=== PATIENT | male | born 1960 | race African-American/Black ===

== ENCOUNTER 2016-09-29 00:51 | Emergency (ER) | payer OTHER ==
[2016-09-29 00:56] VITALS: BP 138/84; PULSE 68; RESP 18; TEMP 99.3
[2016-09-29] MEDS ORDERED: IBUPROFEN 600 MG TAB PO STA (01:21)
[2016-09-29 01:35] LABS: Amorphous Sediment,Urine Rare /hpf; Appearance,Urine Cloudy (Clear); Bacteria,Urine Rare /hpf; Bilirubin,Urine Negative (Negative); Glucose,Urine (UA) Negative (Negative); Ketones,Urine Negative (Negative); Leukocyte Esterase,Urine Large (Negative); Mucus,Urine Rare /hpf; Nitrite,Urine Negative (Negative); Particle Count 9157; Protein,Urine Trace (Negative); RBC,Urine 8 /hpf (0-5); Specific Gravity,Urine 1.003 (1.001-1.035); Squamous Epithelial Cell,Urine 1 /hpf (0-4); UA Billing (MACRO vs. MICRO) MICRO; Urobilinogen,Urine <2.0 mg/dL (<2.0); WBC,Urine >182 /hpf (0-5)
--- NOTE | 2016-09-29 01:43 | ED ---
Male Urogenital HPI - General Chief complaint: Urogenital Stated complaint: Male GI Time Seen by Provider: 09/29/16 01:02 Source: patient, RN notes reviewed, old records reviewed Mode of arrival: ambulatory Limitations: no limitations - History of Present Illness Initial comments: Is a 46-year-old male presenting to the emergency department with chief complaint of scrotal swelling. Patient reports that it started 2 days ago and mainly on the right side. Patient reports that the swelling is now spread towards the left side of the scrotum. Patient states it is very painful. Denies any difficulty with urinating. Patient states that he's had no fever or chills. Denies any abdominal pain, nausea or vomiting. She denies any rashes over the area. Denies any significant past medical history including diabetes. Patient reports that 2 weeks ago he did have an episode of vomiting and diarrhea which she related to a viral illness. Patient reports the pain is worse with movement or sitting in the wrong position. He reports that the scrotum will swell and be irritated by his legs. He denies any trauma to the area to cause the swelling and pain. - Related Data Home Medications Medication Instructions Recorded Confirmed SUMAtriptan SUCCINATE [Imitrex] 25 mg PO DAILY PRN 08/31/15 09/29/16 Previous Rx's Medication Instructions Recorded Acetaminophen-Codeine 300-30mg 1 tab PO Q4H PRN #15 tablet 09/29/16 [Tylenol #3] Doxycycline [Vibramycin] 100 mg PO Q12HR 10 Days 09/29/16 Levofloxacin [Levaquin] 500 mg PO DAILY #10 tab 09/29/16 Allergies Allergy/AdvReac Type Severity Reaction Status Date / Time No Known Allergies Allergy Verified 09/29/16 00:56 Review of Systems ROS Statement: Those systems with pertinent positive or pertinent negative responses have been documented in the HPI. ROS Other: All systems not noted in ROS Statement are negative. Past Medical History Additional Past Medical History / Comment(s): headaches History of Any Multi-Drug Resistant Organisms: None Reported Additional Past Surgical History / Comment(s): Hernia Past Psychological History: No Psychological Hx Reported Smoking Status: Current every day smoker Past Alcohol Use History: Occasional Past Drug Use History: None Reported General Exam - General Exam Comments Initial Comments: Well-appearing 56-year-old male. No acute distress. Limitations: no limitations General appearance: alert, in no apparent distress Head exam: Present: atraumatic, normocephalic, normal inspection Eye exam: Present: normal appearance, PERRL, EOMI. Absent: scleral icterus, conjunctival injection, periorbital swelling ENT exam: Present: normal exam, mucous membranes moist Neck exam: Present: normal inspection. Absent: tenderness, meningismus, lymphadenopathy Respiratory exam: Present: normal lung sounds bilaterally. Absent: respiratory distress, wheezes, rales, rhonchi, stridor Cardiovascular Exam: Present: regular rate, normal rhythm, normal heart sounds. Absent: systolic murmur, diastolic murmur, rubs, gallop, clicks GI/Abdominal exam: Present: soft, normal bowel sounds. Absent: distended, tenderness, guarding, rebound, rigid exam: Present: testicular tenderness, scrotal swelling (Right-sided scrotal swelling. Evidence of what appears to be a fluid-filled mass over the right testicle. Mild left sided scrotal swelling.), vertical testicular lie. Absent : normal inspection, urethral discharge, circumcision Extremities exam: Present: normal inspection, full ROM, normal capillary refill. Absent: tenderness, pedal edema, joint swelling, calf tenderness Back exam: Present: normal inspection Neurological exam: Present: alert, oriented X3, CN II-XII intact Psychiatric exam: Present: normal affect, normal mood Skin exam: Present: warm, dry, intact, normal color. Absent: rash Course Vital Signs 09/29/16 00:54 Temperature 99.3 F Pulse Rate 68 Respiratory 18 Rate Blood Pressure 138/84 O2 Sat by Pulse 100 Oximetry Medical Decision Making - Medical Decision Making This is a 56-year-old male chief complaint of right-sided scrotal swelling for the past 2 days. Patient reports the pain is worse with movement or certain positions. Patient denies any difficulty urinating. Urinalysis was performed. Did show signs of infection. Patient does receive an ultrasound of the scrotum. Ultrasound does show evidence of right-sided epididymitis and orchitis. Also mild left epididymitis. Patient will be treated with IM Rocephin, doxycycline and Levaquin. Patient reports that he's not a serious concern for sexual transmitted infection, but is not 100% sure. Patient urinalysis will be sent for culture. Patient agrees to treatment plan will comply. Return parameters were discussed. Discussed close follow-up with primary care provider and return to emergency department if it continues to get worse over the next 2 or 3 days. Discussed scrotal elevation and ice. Discussed this case with Dr. Jauregui. - Lab Data Lab Results 09/29/16 Range/Units 01:17 Urine Color Colorless Urine Appearance Cloudy (Clear) Urine pH 6.0 (5.0-8.0) Ur Specific Ennice 1.003 (1.001-1.035) Urine Protein Trace H (Negative) Urine Glucose (UA) Negative (Negative) Urine Ketones Negative (Negative) Urine Blood Moderate H (Negative) Urine Nitrite Negative (Negative) Urine Bilirubin Negative (Negative) Urine Urobilinogen <2.0 (<2.0) mg/dL Ur Leukocyte Esterase Large H (Negative) Urine RBC 8 H (0-5) /hpf Urine WBC >182 H (0-5) /hpf Ur Squamous Epith Cells 1 (0-4) /hpf Amorphous Sediment Rare H (None) /hpf Urine Bacteria Rare H (None) /hpf Urine Mucus Rare H (None) /hpf - Radiology Data Radiology results: report reviewed Right epididymal orchitis and moderate hydrocele. Left epididymitis. No evidence of torsion. Right epididymis measures 1.6 cm. With hypervascular flow. Left epididymis is 0.87 m. With hypervascular flow. Right testes is 3.7 x 2.8 x 3.2 cm hypervascular flow. Left testes is 3.2 x 1.6 x 2.5 cm with normal vascularity. Disposition Clinical Impression: Epididymitis Disposition: HOME SELF-CARE Condition: Good Instructions: Epididymo-Orchitis (ED), Testicle Pain (ED) Additional Instructions: Patient advised to completely antibiotic prescriptions. Follow-up with primary care provider within the next 24-48 hours. Patient advised to apply ice as scrotum and keep it elevated. Return to the emergency department if any alarming signs or symptoms occur. Prescriptions: Acetaminophen-Codeine 300-30mg [Tylenol #3] 1 tab PO Q4H PRN #15 tablet PRN Reason: Pain Doxycycline [Vibramycin] 100 mg PO Q12HR 10 Days Levofloxacin [Levaquin] 500 mg PO DAILY #10 tab Referrals: Dami Young DO [Primary Care Provider] - 1-2 days Time of Disposition: 02:33
--- NOTE | 2016-09-29 02:14 | US ---
INDICATION: Testicular pain on the right side with swelling TECHNIQUE: Real-time sonographic imaging of the scrotum is performed in transverse and longitudinal projections. COMPARISON: None. FINDINGS: There is scrotal skin thickening. TESTES: Right testis: 3.7 x 2.8 x 3.2 cm with hypervascular flow. Left testis: 3.2 x 1.6 x 2.5 cm with normal vascularity. EPIDIDYMIS HEAD: Right Epididymis: 1.6 cm, with hypervascular flow. Left Epididymis: 0.8 cm, with hypervascular flow. HYDROCELE: Moderate right hydrocele. Trace left hydrocele. VARICOCELE: Present on the left. IMPRESSION: 1. Right epididymoorchitis and moderate hydrocele. 2. Left epididymitis. 3. No evidence of torsion.
[2016-09-29] MEDS ORDERED: cefTRIAXone 1,000 MG VIAL (IM USE) IM STA (02:29)
[2016-09-29] MEDS ORDERED: LEVOFLOXACIN 500 MG TAB PO STA (02:31)
[2016-09-29] MEDS ORDERED: DOXYCYCLINE 50 MG CAP PO STA (02:31)
== END 2016-09-29 02:55 | disposition home or self-care (01) ==
LOC: EC 00:51
DX: N45.1 Epididymitis (principal); R19.7 Diarrhea, unspecified; F17.200 Nicotine dependence, unspecified, uncomplicated
CPT/HCPCS: 99284; 96372; 81001; 93975; 76870; J0696

== ENCOUNTER 2016-11-09 22:45 | Emergency (ER) | payer OTHER ==
[2016-11-10 00:03] VITALS: RESP 16
[2016-11-10] MEDS ORDERED: HYDROmorphone 2 MG/ML 1 ML SYRINGE IM STA (00:12)
--- NOTE | 2016-11-10 00:20 | ED ---
General Adult HPI - General Chief complaint: Headache Stated complaint: Cluster Headache Time Seen by Provider: 11/09/16 23:51 Source: patient, RN notes reviewed, old records reviewed Mode of arrival: ambulatory Limitations: no limitations - History of Present Illness Initial comments: This is a 56-year-old Malee F regurgitative headache. Patient states is a chronic headache. 2-3 days of headache with no nausea no vomiting no neurological complaints. Patient's history of cluster headaches, sometimes oxygen Housel is refusing oxygen at this time, patient states usually is helped with the shot, pain control. Otherwise patient denies complaint - Related Data Home Medications Medication Instructions Recorded Confirmed SUMAtriptan SUCCINATE [Imitrex] 25 mg PO DAILY PRN 08/31/15 11/09/16 Allergies Allergy/AdvReac Type Severity Reaction Status Date / Time No Known Allergies Allergy Verified 09/29/16 00:56 Review of Systems ROS Statement: Those systems with pertinent positive or pertinent negative responses have been documented in the HPI. ROS Other: All systems not noted in ROS Statement are negative. Past Medical History Additional Past Medical History / Comment(s): headaches History of Any Multi-Drug Resistant Organisms: None Reported Past Surgical History: Hernia Repair Additional Past Surgical History / Comment(s): Hernia Past Psychological History: No Psychological Hx Reported Smoking Status: Current every day smoker Past Alcohol Use History: Occasional Past Drug Use History: None Reported General Exam Limitations: no limitations General appearance: alert, in no apparent distress Head exam: Present: atraumatic, normocephalic, normal inspection Eye exam: Present: normal appearance, PERRL, EOMI. Absent: scleral icterus, conjunctival injection, periorbital swelling ENT exam: Present: normal exam, mucous membranes moist Neck exam: Present: normal inspection. Absent: tenderness, meningismus, lymphadenopathy Respiratory exam: Present: normal lung sounds bilaterally. Absent: respiratory distress, wheezes, rales, rhonchi, stridor Cardiovascular Exam: Present: regular rate, normal rhythm, normal heart sounds. Absent: systolic murmur, diastolic murmur, rubs, gallop, clicks GI/Abdominal exam: Present: soft, normal bowel sounds. Absent: distended, tenderness, guarding, rebound, rigid Extremities exam: Present: normal inspection, full ROM, normal capillary refill. Absent: tenderness, pedal edema, joint swelling, calf tenderness Back exam: Present: normal inspection Neurological exam: Present: alert, oriented X3, CN II-XII intact Psychiatric exam: Present: normal affect, normal mood Skin exam: Present: warm, dry, intact, normal color. Absent: rash Course Vital Signs 11/09/16 11/09/16 22:58 23:56 Temperature 97.8 F Pulse Rate 82 72 Respiratory 18 16 Rate Blood Pressure 147/83 156/87 O2 Sat by Pulse 98 98 Oximetry - Reevaluation(s) Reevaluation #1: 11/10/16 00:20 Headache resolved Medical Decision Making - Medical Decision Making 56 male the ER for reevaluation tension headache, chronic headache, patient headache resolved, patient can be discharged home Disposition Clinical Impression: Cluster headaches Disposition: HOME SELF-CARE Condition: Good Instructions: Acute Headache (ED) Referrals: Dami Young DO [Primary Care Provider] - 1-2 days
[2016-11-10 00:42] VITALS: BP 146/85; PULSE 71; TEMP 97.3
== END 2016-11-10 00:43 | disposition home or self-care (01) ==
LOC: EC 22:45
DX: G44.009 Cluster headache syndrome, unspecified, not intractable (principal); Z79.899 Other long term (current) drug therapy; F17.200 Nicotine dependence, unspecified, uncomplicated
CPT/HCPCS: 99283; 96372; J1170

== ENCOUNTER 2018-10-07 19:38 | Emergency (ER) | payer OTHER ==
[2018-10-07 19:51] VITALS: BP 142/87; PULSE 75; RESP 18; TEMP 98.4
== END 2018-10-07 20:14 | disposition left against medical advice (07) ==
LOC: EC 19:38
DX: M79.602 Pain in left arm (principal); Z53.21 Procedure and treatment not carried out due to patient leaving prior to being seen by health care provider
CPT/HCPCS: 99499

== ENCOUNTER 2020-02-19 02:56 | Emergency (ER) | payer OTHER ==
[2020-02-19 03:02] VITALS: TEMP 98.4
[2020-02-19] MEDS ORDERED: SODIUM CHLORIDE 0.9% 1,000 ML IV STA (03:03)
[2020-02-19] MEDS ORDERED: LABETALOL 5 MG/ML VIAL MDV IVP STA (03:04)
[2020-02-19] MEDS ORDERED: HYDROmorphone 1 MG/ML 1 ML SYRINGE IVP STA ×2 (03:04→04:17)
--- NOTE | 2020-02-19 03:05 | ED ---
Headache HPI - General Chief Complaint: Headache Stated Complaint: headache Time Seen by Provider: 02/19/20 03:02 Source: RN notes reviewed, old records reviewed Mode of arrival: ambulatory Limitations: no limitations - History of Present Illness Initial Comments: This is a 59-year-old male to the ER for evaluation patient presents today for evaluation regards to headache. Patient having persistent severe headache history of cluster headaches headache, weak today. Otherwise patient has no other new complaints, history of similar type headache but has not had one in almost 2 years MD Complaint: headache, other (Cluster headaches) -: week(s) Onset Description: sudden Location: diffuse Severity: moderate Severity scale (1-10): 6 Quality: throbbing, sharp, full Consistency: intermittent Improves With: nothing Worsens With: none Associated Symptoms: other (No other complaints but difficulty to sleep secondary to pain) Treatments Prior to Arrival: none - Related Data Allergies Allergy/AdvReac Type Severity Reaction Status Date / Time No Known Allergies Allergy Verified 02/19/20 03:02 Review of Systems ROS Statement: Those systems with pertinent positive or pertinent negative responses have been documented in the HPI. ROS Other: All systems not noted in ROS Statement are negative. Past Medical History Additional Past Medical History / Comment(s): headaches History of Any Multi-Drug Resistant Organisms: None Reported Past Surgical History: Hernia Repair Additional Past Surgical History / Comment(s): Hernia Past Psychological History: No Psychological Hx Reported Smoking Status: Current every day smoker Past Alcohol Use History: Abuse, Daily, Heavy Past Drug Use History: None Reported General Exam Limitations: no limitations General appearance: alert, in no apparent distress Head exam: Present: atraumatic, normocephalic, normal inspection Eye exam: Present: normal appearance, PERRL, EOMI. Absent: scleral icterus, conjunctival injection, periorbital swelling ENT exam: Present: normal exam, mucous membranes moist Neck exam: Present: normal inspection. Absent: tenderness, meningismus, lymphadenopathy Respiratory exam: Present: normal lung sounds bilaterally. Absent: respiratory distress, wheezes, rales, rhonchi, stridor Cardiovascular Exam: Present: regular rate, normal rhythm, normal heart sounds. Absent: systolic murmur, diastolic murmur, rubs, gallop, clicks GI/Abdominal exam: Present: soft, normal bowel sounds. Absent: distended, tenderness, guarding, rebound, rigid Extremities exam: Present: normal inspection, full ROM, normal capillary refill. Absent: tenderness, pedal edema, joint swelling, calf tenderness Back exam: Present: normal inspection Neurological exam: Present: alert, oriented X3, CN II-XII intact Psychiatric exam: Present: normal affect, normal mood Skin exam: Present: warm, dry, intact, normal color. Absent: rash Course Vital Signs 02/19/20 02/19/20 02/19/20 03:00 03:26 04:00 Temperature 98.4 F Pulse Rate 60 55 L Respiratory 18 16 Rate Blood Pressure 201/114 171/91 153/89 O2 Sat by Pulse 98 99 Oximetry - Reevaluation(s) Reevaluation #1: 02/19/20 03:52 Medical records reviewed Reevaluation #2: 02/19/20 03:52 Patient feeling significantly better Reevaluation #3: 02/19/20 04:27 Headache to get marginally worse here in the ER but improved with more pain control Reevaluation #4: 02/19/20 04:27 Spoke patient regarding findings here in the ER, questions answered Medical Decision Making - Medical Decision Making 79 male known to our facility for headaches in the past coming in for headache today. Headache for 2 weeks intermittent, getting worse today. Patient's headache is resolved here in the ER blood pressures improved, patient can be discharged - Lab Data Result diagrams: 02/19/20 03:22 02/19/20 03:22 Lab Results 02/19/20 02/19/20 Range/Units 03:22 03:22 WBC 5.4 (3.8-10.6) k/uL RBC 4.00 L (4.30-5.90) m/uL Hgb 14.4 (13.0-17.5) gm/dL Hct 43.1 (39.0-53.0) % MCV 107.9 H (80.0-100.0) fL MCH 35.9 H (25.0-35.0) pg MCHC 33.3 (31.0-37.0) g/dL RDW 12.2 (11.5-15.5) % Plt Count 302 (150-450) k/uL Neutrophils % 60 % Lymphocytes % 23 % Monocytes % 10 % Eosinophils % 3 % Basophils % 1 % Neutrophils # 3.2 (1.3-7.7) k/uL Lymphocytes # 1.3 (1.0-4.8) k/uL Monocytes # 0.5 (0-1.0) k/uL Eosinophils # 0.2 (0-0.7) k/uL Basophils # 0.0 (0-0.2) k/uL Macrocytosis Moderate Sodium 139 (137-145) mmol/L Potassium 4.2 (3.5-5.1) mmol/L Chloride 108 H (98-107) mmol/L Carbon Dioxide 25 (22-30) mmol/L Anion Gap 6 mmol/L BUN 17 (9-20) mg/dL Creatinine 0.87 (0.66-1.25) mg/dL Est GFR (CKD-EPI)AfAm >90 (>60 ml/min/1.73 sqM) Est GFR (CKD-EPI)NonAf >90 (>60 ml/min/1.73 sqM) Glucose 120 H (74-99) mg/dL Calcium 9.3 (8.4-10.2) mg/dL Phosphorus 3.5 (2.5-4.5) mg/dL Magnesium 1.9 (1.6-2.3) mg/dL Total Bilirubin 0.5 (0.2-1.3) mg/dL AST 28 (17-59) U/L ALT 8 (4-49) U/L Alkaline Phosphatase 82 (38-126) U/L Total Protein 6.7 (6.3-8.2) g/dL Albumin 4.0 (3.5-5.0) g/dL - EKG Data -: EKG Interpreted by Me (EKG shows sinus bradycardia 56 NM 134 QRS 112 QTC 434) - Radiology Data Radiology results: report reviewed (CT brain is negative for acute disease), image reviewed Disposition Clinical Impression: Headache, Cluster headaches Disposition: HOME SELF-CARE Condition: Good Instructions (If sedation given, give patient instructions): Acute Headache (ED) Is patient prescribed a controlled substance at d/c from ED?: No Referrals: [facility],Clinic [Primary Care Provider] - 1-2 days
[2020-02-19 03:41] LABS: Basophils % (A) 1 %; Eosinophils # (A) 0.2 k/uL (0-0.7); Eosinophils % (A) 3 %; HCT 43.1 % (39.0-53.0); HGB 14.4 gm/dL (13.0-17.5); Lymphocytes # (A) 1.3 k/uL (1.0-4.8); Lymphocytes % (A) 23 %; MCH 35.9 pg (25.0-35.0); MCHC 33.3 g/dL (31.0-37.0); MCV 107.9 fL (80.0-100.0); Macrocytosis Moderate; Mean Platelet Volume 6.9; Monocytes # (A) 0.5 k/uL (0-1.0); Monocytes % (A) 10 %; Neutrophils # (A) 3.2 k/uL (1.3-7.7); Neutrophils % (A) 60 %; Platelet Count 302 k/uL (150-450); RDW 12.2 % (11.5-15.5); WBC 5.4 k/uL (3.8-10.6)
[2020-02-19 03:58] LABS: ALT 8 U/L (4-49); AST 28 U/L (17-59); African American GFR (CKD) >90 (>60 ml/min/1.73 sqM); Alkaline Phosphatase 82 U/L (38-126); Anion Gap 6 mmol/L; Blood Urea Nitrogen 17 mg/dL (9-20); Calcium 9.3 mg/dL (8.4-10.2); Carbon Dioxide 25 mmol/L (22-30); Chloride 108 mmol/L (98-107); Glucose 120 mg/dL (74-99); Magnesium 1.9 mg/dL (1.6-2.3); Non-African American GFR(CKD) >90 (>60 ml/min/1.73 sqM); Phosphorus 3.5 mg/dL (2.5-4.5); Potassium 4.2 mmol/L (3.5-5.1); Sodium 139 mmol/L (137-145); Total Bilirubin 0.5 mg/dL (0.2-1.3); Total Protein 6.7 g/dL (6.3-8.2)
[2020-02-19] MEDS ORDERED: DIAZEPAM 5 MG/ML 2 ML INJ IVP STA (04:17)
[2020-02-19] MEDS ORDERED: KETOROLAC 15 MG/ML 1 ML VIAL IVP STA (04:17)
[2020-02-19 04:32] VITALS: PULSE 62
--- NOTE | 2020-02-19 04:40 | CT ---
EXAM: CT Head Without Intravenous Contrast CLINICAL HISTORY: headache TECHNIQUE: Axial computed tomography images of the head/brain without intravenous contrast. CTDI is 49.27 mGy and DLP is 1142.4 mGy-cm. This CT exam was performed using one or more of the following dose reduction techniques: automated exposure control, adjustment of the mA and/or kV according to patient size, and/or use of iterative reconstruction technique. COMPARISON: MR brain dated 12/31/2015, CT brain dated 09/11/2015 FINDINGS: Brain: No acute intracranial hemorrhage. Lombardi-white interface is preserved throughout the cerebral hemispheres. Posterior fossa is symmetric. Ventricles: Unremarkable. No ventriculomegaly. Basilar cisterns are widely patent. Bones/joints: Unremarkable. No acute fracture. Soft tissues: Unremarkable. Sinuses: Unremarkable as visualized. No acute sinusitis. Mastoid air cells: Unremarkable as visualized. No mastoid effusion. IMPRESSION: No acute intracranial abnormality. No acute intracranial hemorrhage, herniation, or hydrocephalus.
[2020-02-19] MEDS ORDERED: SUMAtriptan succinate 50 MG TAB PO ONE (04:45)
[2020-02-19 07:03] VITALS: BP 163/74; RESP 16
== END 2020-02-19 06:57 | disposition home or self-care (01) ==
LOC: EC 02:56
DX: G44.009 Cluster headache syndrome, unspecified, not intractable (principal); F17.200 Nicotine dependence, unspecified, uncomplicated
CPT/HCPCS: 99285 ×2; 96374 ×2; 96375 ×4; 96376 ×2; 96361 ×2; 36415; 93005; 80053; 83735; 84100; 85025; 70450; J3360; J1170; J1885

== ENCOUNTER 2020-02-28 09:21 | Emergency (ER) | payer OTHER ==
[2020-02-28 09:31] VITALS: PULSE 54; TEMP 98
[2020-02-28] MEDS ORDERED: HYDROmorphone 1 MG/ML 1 ML SYRINGE IVP STA (09:42)
[2020-02-28] MEDS ORDERED: SODIUM CHLORIDE 0.9% 1,000 ML IV STA (09:42)
[2020-02-28] MEDS ORDERED: METOCLOPRAMIDE 5 MG/ML 2 ML VIAL IVP STA (09:42)
--- NOTE | 2020-02-28 09:42 | ED ---
General Adult HPI - General Chief complaint: Headache Stated complaint: Headache Time Seen by Provider: 02/28/20 09:28 Source: patient, RN notes reviewed Mode of arrival: ambulatory Limitations: no limitations - History of Present Illness Initial comments: Patient is a pleasant 59-year-old male presenting to the emergency Department with complaints of headache. Onset of symptoms this time was 3 days ago. Patient has left-sided headaches that come and go. Patient states this one has been occurring for a few hours. Patient states the past few days he has had 2-3 per day. Patient has previously been diagnosed with cluster headaches. Patient states he has been having similar headaches to this since age 26. Patient has had previous head CTs. Patient states sometimes he gets these frequently and sometimes does not get them for months or occasionally a year or 2. No weakness or confusion. Patient did have previous head CTs and did have recent head CT a week or 2 ago when he was here. Patient states previously oxygen, Dilaudid, and sumatriptan have helped him. - Related Data Home Medications Medication Instructions Recorded Confirmed No Known Home Medications 02/28/20 02/28/20 Allergies Allergy/AdvReac Type Severity Reaction Status Date / Time No Known Allergies Allergy Verified 02/28/20 10:55 Review of Systems ROS Statement: Those systems with pertinent positive or pertinent negative responses have been documented in the HPI. ROS Other: All systems not noted in ROS Statement are negative. Constitutional: Denies: fever Eyes: Denies: vision change ENT: Denies: ear pain Endocrine: Denies: fatigue Gastrointestinal: Reports: nausea, vomiting. Denies: abdominal pain Genitourinary: Denies: dysuria Musculoskeletal: Denies: back pain Skin: Denies: rash Neurological: Reports: headache. Denies: weakness, confusion Past Medical History Additional Past Medical History / Comment(s): headaches History of Any Multi-Drug Resistant Organisms: None Reported Past Surgical History: Hernia Repair Additional Past Surgical History / Comment(s): Hernia Past Psychological History: No Psychological Hx Reported Smoking Status: Current every day smoker Past Alcohol Use History: Abuse, Daily, Heavy Past Drug Use History: None Reported General Exam Limitations: no limitations General appearance: alert, in no apparent distress Head exam: Present: normocephalic Eye exam: Present: normal appearance, PERRL, EOMI. Absent: nystagmus ENT exam: Present: normal oropharynx Neck exam: Present: normal inspection Respiratory exam: Present: normal lung sounds bilaterally Cardiovascular Exam: Present: regular rate, normal rhythm GI/Abdominal exam: Present: soft. Absent: tenderness Extremities exam: Present: normal inspection Neurological exam: Present: alert, oriented X3, CN II-XII intact. Absent: motor sensory deficit Expanded Neurological exam: Present: protecting the airway Speech: Present: fluid speech Cranial nerves: EOM's Intact: Normal, Facial Sensation: Normal Cerebellar function: Finger to Nose: Normal Sensory exam: Upper Extremity Light Touch: Normal, Lower Extremity Light Touch: Normal Motor strength exam: RUE: 5, LUE: 5, RLE: 5, LLE: 5 Eye Response: (4) open spontaneously Motor Response: (6) obeys commands Verbal Response: (5) oriented Psychiatric exam: Present: normal affect, normal mood Skin exam: Present: normal color Course Vital Signs 02/28/20 02/28/20 09:29 10:31 Temperature 98.0 F Pulse Rate 54 L 54 L Respiratory 18 20 Rate Blood Pressure 188/86 160/87 O2 Sat by Pulse 100 100 Oximetry Medical Decision Making - Medical Decision Making Patient reevaluated and resting comfortably in bed. Patient states he is feeling much better and is comfortable with discharge. Patient does request a dose of Imitrex to take home with him if needs it for later. - Lab Data Lab Results 02/28/20 Range/Units 09:53 ESR 6 (0-15) mm/hr Disposition Clinical Impression: Cluster headaches Disposition: HOME SELF-CARE Condition: Stable Instructions (If sedation given, give patient instructions): Acute Headache (ED) Additional Instructions: Please follow-up with primary care physician in the being the week. Return for weakness, confusion, fevers, worsening or change in symptoms or other concerns. Is patient prescribed a controlled substance at d/c from ED?: No Referrals: [facility],Clinic [Primary Care Provider] - 1-2 days Time of Disposition: 10:43
[2020-02-28 10:39] VITALS: RESP 20
[2020-02-28] MEDS ORDERED: SUMAtriptan succinate 50 MG TAB PO STA (10:43)
[2020-02-28 11:31] VITALS: BP 153/91
== END 2020-02-28 11:34 | disposition home or self-care (01) ==
LOC: EC 09:21
DX: G44.009 Cluster headache syndrome, unspecified, not intractable (principal); F17.200 Nicotine dependence, unspecified, uncomplicated
CPT/HCPCS: 36415; 85652; 99284; 96374; 96375; 96361; J2765; J1170

== ENCOUNTER 2021-04-17 23:48 | Observation (INO) | payer OTHER ==
[2021-04-17] MEDS ORDERED: HYDROmorphone 1 MG/ML 1 ML SYRINGE IVP STA (23:54)
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
[2021-04-18 00:24] LABS: Basophils % (A) 1 %; Eosinophils # (A) 0.1 k/uL (0-0.7); Eosinophils % (A) 3 %; HGB 15.5 gm/dL (13.0-17.5); Lymphocytes # (A) 1.4 k/uL (1.0-4.8); Lymphocytes % (A) 33 %; MCV 108.9 fL (80.0-100.0); Macrocytosis Moderate; Mean Platelet Volume 7.3; Monocytes # (A) 0.3 k/uL (0-1.0); Monocytes % (A) 8 %; Neutrophils # (A) 2.2 k/uL (1.3-7.7); Neutrophils % (A) 52 %; Platelet Count 262 k/uL (150-450); RBC 4.32 m/uL (4.30-5.90); RDW 12.1 % (11.5-15.5); WBC 4.2 k/uL (3.8-10.6)
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
[2021-04-18 00:40] LABS: ALT 9 U/L (4-49); AST 45 U/L (17-59); African American GFR (CKD) >90 (>60 ml/min/1.73 sqM); Albumin 3.5 g/dL (3.5-5.0); Alkaline Phosphatase 37 U/L (38-126); Anion Gap 8 mmol/L; Blood Urea Nitrogen 9 mg/dL (9-20); Calcium 8.2 mg/dL (8.4-10.2); Carbon Dioxide 22 mmol/L (22-30); Chloride 106 mmol/L (98-107); Glucose 85 mg/dL (74-99); Non-African American GFR(CKD) >90 (>60 ml/min/1.73 sqM); Sodium 136 mmol/L (137-145); Total Bilirubin 0.7 mg/dL (0.2-1.3); Total Protein 6.3 g/dL (6.3-8.2)
[2021-04-18 00:42] LABS: Partial Thromboplastin Time 23.5 sec (22.0-30.0); Prothrombin Time 10.4 sec (9.0-12.0)
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
[2021-04-18 00:47] LABS: Alcohol 236 mg/dL
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
[2021-04-18] MEDS ORDERED: HYDROmorphone 0.5 MG/0.5 ML SYRINGE IVP PRN (01:05)
[2021-04-18] MEDS ORDERED: ACETAMINOPHEN TAB 325 MG TAB PO PRN (01:05)
[2021-04-18] MEDS ORDERED: IBUPROFEN 400 MG TAB PO PRN (01:05)
[2021-04-18] MEDS ORDERED: NALOXONE 0.4 MG/ML 1 ML VIAL IV PRN (01:05)
[2021-04-18] MEDS: HYDROmorphone 1 MG/ML 1 ML SYRINGE IVP PRN ×5 (01:28→19:46)
[2021-04-18] MEDS: SODIUM CHLORIDE 0.9% 1,000 ML IV SCH ×2 (01:28→14:49)
[2021-04-18] MEDS ORDERED: KETOROLAC 30 MG/ML 1 ML VIAL IVP PRN (09:05)
[2021-04-18] MEDS: PANTOPRAZOLE 40 MG TABLET PO SCH (09:13)
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
--- NOTE | 2021-04-18 11:59 | ECHOF ---
Referral Reason:Sternal fracture MEASUREMENTS -------- HEIGHT: 175.3 cm WEIGHT: 81.6 kg BP: 134/84 RVIDd: 2.2 cm (< 3.3) IVSd: 1.0 cm (0.6 - 1.1) LVIDd: 5.0 cm (3.9 - 5.3) LVPWd: 1.0 cm (0.6 - 1.1) IVSs: 1.3 cm LVIDs: 3.2 cm LVPWs: 1.4 cm LAESV Index (A-L): 18.67 ml/m Ao Diam: 3.2 cm (2.0 - 3.7) AV Cusp: 2.0 cm (1.5 - 2.6) LA Diam: 3.8 cm (2.7 - 3.8) MV EXCURSION: 22.907 mm (> 18.000) MV EF SLOPE: 166 mm/s (70 - 150) EPSS: 1.2 cm MV E Abdulaziz: 0.57 m/s MV DecT: 231 ms MV A Abdulaziz: 0.54 m/s MV E/A Ratio: 1.06 RAP: 5.00 mmHg RVSP: 11.42 mmHg FINDINGS -------- This was a technically good study. The left ventricular size is normal. Left ventricular wall thickness is normal. Overall left vent ricular systolic function is normal with, an EF between 55 - 60 %. The diastolic filling pattern is normal for the age of the patient 7.98. The right ventricle is normal in size. The left atrial size is normal. Normal LA size by volume 22+/-6 ml/m2. The right atrial size is normal. Aortic valve is trileaflet and is mildly thickened. The mitral valve is normal. The mitral valve leaflets are mildly thickened. There is trace mitral regurgitation. The tricuspid valve appears structurally normal. Trace tricuspid regurgitation present. Right winter tricular systolic pressure is normal at < 35 mmHg. There is no pulmonic regurgitation present. The aortic root size is normal. Normal inferior vena cava with normal inspiratory collapse consistent with estimated right atrial pre ssure of 5 mmHg. There is no pericardial effusion. CONCLUSIONS -------- 1. The left ventricular size is normal. 2. Left ventricular wall thickness is normal. 3. Overall left ventricular systolic function is normal with, an EF between 55 - 60 %. 4. The diastolic filling pattern is normal for the age of the patient 7.98 5. Aortic valve is trileaflet and is mildly thickened. 6. The mitral valve leaflets are mildly thickened. 7. There is trace mitral regurgitation. 8. Trace tricuspid regurgitation present. 9. There is no pericardial effusion. LEARNING SUPPORT ASSISTANT: Betty Moncada RDCS
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
[2021-04-18] MEDS ORDERED: ONDANSETRON 4 MG/2 ML VIAL IVP PRN (14:34)
[2021-04-18] MEDS ORDERED: LORazepam 2 MG/ML INJ IV PRN ×3 (14:45)
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
[2021-04-18] MEDS: FOLIC ACID 1 MG TAB PO SCH (16:21)
[2021-04-18] MEDS: NICOTINE 14MG/24HR PATCH TRANSDERM SCH (16:22)
[2021-04-18] MEDS: THIAMINE 100 MG TAB PO SCH (18:22)
[2021-04-19] MEDS: SODIUM CHLORIDE 0.9% 1,000 ML IV SCH (03:35)
[2021-04-19] MEDS: HYDROmorphone 1 MG/ML 1 ML SYRINGE IVP PRN (05:07)
[2021-04-19 05:46] LABS: HCT 41.5 % (39.0-53.0); HGB 13.7 gm/dL (13.0-17.5); MCH 37.2 pg (25.0-35.0); MCV 112.8 fL (80.0-100.0); Macrocytosis Marked; Platelet Count 278 k/uL (150-450); RBC 3.68 m/uL (4.30-5.90); WBC 4.6 k/uL (3.8-10.6)
[2021-04-19 05:57] LABS: ALT 7 U/L (4-49); AST 25 U/L (17-59); African American GFR (CKD) >90 (>60 ml/min/1.73 sqM); Albumin 2.6 g/dL (3.5-5.0); Albumin/Globulin Ratio 1.1; Alkaline Phosphatase 60 U/L (38-126); Anion Gap 4 mmol/L; Blood Urea Nitrogen 15 mg/dL (9-20); Calcium 8.2 mg/dL (8.4-10.2); Carbon Dioxide 27 mmol/L (22-30); Chloride 104 mmol/L (98-107); Globulin 2.3 g/dL; Glucose 114 mg/dL (74-99); Non-African American GFR(CKD) >90 (>60 ml/min/1.73 sqM); Sodium 135 mmol/L (137-145); Total Bilirubin 0.3 mg/dL (0.2-1.3); Total Protein 4.9 g/dL (6.3-8.2)
[2021-04-19] MEDS ORDERED: HYDROcodone/APAP 7.5-325MG 1 EACH TAB PO PRN (07:40)
[2021-04-19 07:46] VITALS: BP 163/80; PULSE 57; RESP 20; TEMP 97.3
[2021-04-19] MEDS ORDERED: MULTIVITAMINS, THERA 1 EACH TAB PO SCH (09:00)
[2021-04-19] MEDS: NICOTINE 14MG/24HR PATCH TRANSDERM SCH (09:19)
[2021-04-19] MEDS: FOLIC ACID 1 MG TAB PO SCH (09:19)
[2021-04-19] MEDS: PANTOPRAZOLE 40 MG TABLET PO SCH (09:19)
[2021-04-19] MEDS: THIAMINE 100 MG TAB PO SCH (09:19)
--- NOTE | 2021-04-19 09:42 | XR ---
EXAMINATION TYPE: XR chest 1V portable DATE OF EXAM: 04/19/2021 COMPARISON: 04/18/2021 HISTORY: Chest pain TECHNIQUE: Single frontal view of the chest is obtained. FINDINGS: Heart size is prominent bilateral lower lobe areas of subsegmental consolidation. Underlyi ng COPD suspected. No pleural effusion or pneumothorax. IMPRESSION: COPD with basilar atelectasis or early infiltrate.
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
--- NOTE | 2021-04-19 10:25 | P.PN ---
Subjective Progress Note Date: 04/19/21 Principal diagnosis: Displaced sternal fracture, chest pain on admission. History of current tobacco dependence, EtOH use The patient was seen and examined this morning is sitting up in bed on the medical surgical unit in no acute distress. He states his sternal pain is well-controlled as long as he sitting still but does hurt significantly with any movement or deep breaths. Currently on room air and oxygenating well. No new concerns from our standpoint. Objective - Vital Signs Vital signs: Vital Signs Temp 97.3 F L 04/19/21 07:00 Pulse 57 L 04/19/21 07:00 Resp 20 04/19/21 07:00 BP 163/80 04/19/21 07:00 Pulse Ox 95 04/19/21 07:00 Intake & Output 04/18/21 04/19/21 04/19/21 18:59 06:59 18:59 Intake Total 359 Balance 359 Weight 81.647 kg Intake: Intake, IV Titration 20 Amount Sodium Chloride 0.9% 1, 20 000 ml @ 75 mls/hr IV . [id number] [facility] Rx#:[id number] Oral 339 Other: # Voids 2 - Exam CONSTITUTIONAL: Appears comfortable, cooperative, no acute distress RESPIRATORY: Lungs sounds diminished bilaterally. Respirations even, nonlabored. Currently on room air with oxygen saturation 95%. Only able to achieve 500 mL on incentive spirometry. Strong cough. CARDIOVASCULAR: S1, S2 present. Regular rate and rhythm. Palpable peripheral pulses bilaterally. No edema present. No calf pain or tenderness noted. GASTROINTESTINAL: Abdomen soft, nontender, nondistended. Active bowel sounds present 4 quadrants. Tolerating diet. GENITOURINARY: Continues to void INTEGUMENTARY: Skin is warm and dry with evidence of good perfusion NEUROLOGIC: Cranial nerves II through XII intact MUSKULOSKELETAL: Able to move all extremities, strength equal bilaterally, gait normal PSYCHIATRIC: Alert and oriented to person place and time, appropriate affect, intact judgment and insight - Allied health notes Allied health notes reviewed: nursing - Labs CBC & Chem 7: 04/19/21 05:00 04/19/21 05:00 Labs: Abnormal Lab Results - Last 24 Hours (Table) 04/19/21 04/19/21 Range/Units 05:00 05:00 RBC 3.68 L (4.30-5.90) m/uL MCV 112.8 H (80.0-100.0) fL MCH 37.2 H (25.0-35.0) pg Macrocytosis Marked A Sodium 135 L (137-145) mmol/L Glucose 114 H (74-99) mg/dL Calcium 8.2 L (8.4-10.2) mg/dL Total Protein 4.9 L (6.3-8.2) g/dL Albumin 2.6 L (3.5-5.0) g/dL - Imaging and Cardiology Chest x-ray: report reviewed, image reviewed Assessment and Plan Assessment: 1. Displaced sternal fracture, cardiac contusion 2. Pain secondary to above 3. Tobacco dependence 4. EtOH use Plan: 1. No surgical intervention warranted, aorta appears normal without dissection on CT, troponins remain negative, transthoracic echocardiogram demonstrates no surgical issues 2. Encourage sternal precautions, no lifting/pushing/pulling anything heavier than 10 pounds for 34 months. Encourage heart hugger use to stabilize sternum 3. Pain control per primary care 4. Patient may be discharged to home from cardiothoracic surgery standpoint when okay with other services. No need for follow-up with cardiothoracic surgery as we have no plans for surgical intervention Time with Patient: Greater than 30
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
--- NOTE | 2021-04-22 15:25 | CONS ---
CONSULTATION DATE OF SERVICE: 04/18/21 I have seen, examined, and agree with the midlevel's findings. MMODL / IJN: [id number] / -01
== END 2021-04-19 12:00 | disposition home or self-care (01) ==
LOC: EC 23:48 → 6NMEDSUR 04-18 01:05
PROVIDERS: ADMIT Surgery; ATTEND Surgery
DX: S22.20XA Unspecified fracture of sternum, initial encounter for closed fracture (principal); F10.129 Alcohol abuse with intoxication, unspecified; S27.329A Contusion of lung, unspecified, initial encounter; S26.91XA Contusion of heart, unspecified with or without hemopericardium, initial encounter; J44.9 Chronic obstructive pulmonary disease, unspecified; G44.009 Cluster headache syndrome, unspecified, not intractable; K57.90 Diverticulosis of intestine, part unspecified, without perforation or abscess without bleeding; I44.4 Left anterior fascicular block; I51.7 Cardiomegaly; V18.4XXA Pedal cycle driver injured in noncollision transport accident in traffic accident, initial encounter; Y93.55 Activity, bike riding; R25.1 Tremor, unspecified; M79.601 Pain in right arm; Y90.7 Blood alcohol level of 200-239 mg/100 ml; R91.8 Other nonspecific abnormal finding of lung field; F17.210 Nicotine dependence, cigarettes, uncomplicated; Z20.822 Contact with and (suspected) exposure to COVID-19; Z98.890 Other specified postprocedural states; Z81.2 Family history of tobacco abuse and dependence; Z80.1 Family history of malignant neoplasm of trachea, bronchus and lung; Z71.6 Tobacco abuse counseling
CPT/HCPCS: 96376 ×3; 96361; 96375 ×2; 96374; 99285; 36415; 93005; 93306; 80053 ×2; 84484; 85025; 85027; 85610; 85730; 80320; 87635; 72170; 71045 ×2; 72125; 70450; 71260; 74177; G0378 ×2; S4990 ×2; J2405; J1885; J1170 ×3; Q9967

== ENCOUNTER 2021-05-01 07:18 | Emergency (ER) | payer OTHER ==
[2021-05-01 07:26] VITALS: RESP 18
[2021-05-01] MEDS ORDERED: RX INFO: IV CONTRAST WAS GIVEN 1 EACH MISC MISCELLANE PRN (08:00)
[2021-05-01] MEDS ORDERED: MORPHINE SULFATE 4 MG/ML SYRINGE IVP STA (08:02)
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
[2021-05-01 08:30] LABS: ALT 11 U/L (4-49); AST 31 U/L (17-59); African American GFR (CKD) >90 (>60 ml/min/1.73 sqM); Albumin 3.6 g/dL (3.5-5.0); Alkaline Phosphatase 74 U/L (38-126); Anion Gap 7 mmol/L; Blood Urea Nitrogen 9 mg/dL (9-20); Calcium 8.7 mg/dL (8.4-10.2); Carbon Dioxide 24 mmol/L (22-30); Chloride 110 mmol/L (98-107); Glucose 105 mg/dL (74-99); Non-African American GFR(CKD) >90 (>60 ml/min/1.73 sqM); Potassium 4.4 mmol/L (3.5-5.1); Sodium 141 mmol/L (137-145); Total Bilirubin 0.4 mg/dL (0.2-1.3); Total Protein 6.5 g/dL (6.3-8.2)
[2021-05-01 08:32] LABS: Alcohol 274 mg/dL
[2021-05-01 08:37] LABS: INR 0.9 (<1.2); Partial Thromboplastin Time 22.4 sec (22.0-30.0); Prothrombin Time 9.5 sec (9.0-12.0)
[2021-05-01 08:42] LABS: Basophils % (A) 1 %; Eosinophils # (A) 0.1 k/uL (0-0.7); Eosinophils % (A) 3 %; HCT 46.9 % (39.0-53.0); HGB 15.4 gm/dL (13.0-17.5); Lymphocytes # (A) 1.5 k/uL (1.0-4.8); Lymphocytes % (A) 34 %; MCH 36.3 pg (25.0-35.0); MCHC 32.9 g/dL (31.0-37.0); MCV 110.5 fL (80.0-100.0); Macrocytosis Marked; Mean Platelet Volume 6.6; Monocytes # (A) 0.5 k/uL (0-1.0); Monocytes % (A) 10 %; Neutrophils # (A) 2.2 k/uL (1.3-7.7); Neutrophils % (A) 49 %; Platelet Count 333 k/uL (150-450); RBC 4.24 m/uL (4.30-5.90); RDW 12.4 % (11.5-15.5); WBC 4.5 k/uL (3.8-10.6)
--- NOTE | 2021-05-01 10:00 | XR ---
EXAMINATION TYPE: XR chest 1V portable DATE OF EXAM: 05/01/2021 COMPARISON: April 19, 2021 HISTORY: 60 years Male. STUDY INDICATION GIVEN: trauma . TECHNIQUE: AP upright chest radiograph IMPRESSION: There are left lower lobe opacities which have decreased in the interval and may be reflective of ate lectasis, infiltrate or contusion. Scattered bilateral peripheral opacities are not significantly changed in appearance compared to the prior. The heart size is mildly enlarged. No pneumothorax or large effusion appreciated. No acute fracture or dislocation seen.
--- NOTE | 2021-05-01 10:02 | XR ---
EXAMINATION TYPE: XR pelvis AP view DATE OF EXAM: 05/01/2021 COMPARISON: April 18, 2021 HISTORY: 60 years Male. STUDY INDICATION GIVEN: Trauma . TECHNIQUE: Supine frontal pelvic radiograph IMPRESSION: Preserved bony mineralization. No acute fracture or dislocation seen. Symmetric bilateral appearance of the sacroiliac joints and hip joints. Pubic symphysis is normal in width. Lower pelvic central oval-shaped opacity could be reflective of a distended urinary bladder. Clinical correlation recommended.
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
[2021-05-01 12:15] VITALS: BP 132/90; PULSE 70; TEMP 97.8
[2021-05-01] MEDS ORDERED: traMADol 50 MG STARTER PACK 3 TAB BTL PO STA (12:16)
== END 2021-05-01 12:28 | disposition home or self-care (01) ==
LOC: EC 07:18
DX: S22.20XA Unspecified fracture of sternum, initial encounter for closed fracture (principal); F10.129 Alcohol abuse with intoxication, unspecified; F17.200 Nicotine dependence, unspecified, uncomplicated; Y90.8 Blood alcohol level of 240 mg/100 ml or more; V18.4XXA Pedal cycle driver injured in noncollision transport accident in traffic accident, initial encounter
CPT/HCPCS: 93005; 80053; 84484; 85025; 85610; 85730; 80320; 72170; 71045; 71260; 99284; 96374; J2270; 36415

== ENCOUNTER 2021-06-13 17:24 | Inpatient (IN) | payer OTHER ==
[2021-06-13] MEDS ORDERED: SODIUM CHLORIDE 0.9% 1,000 ML IV ONE ×2 (18:09→20:28)
[2021-06-13] MEDS ORDERED: SODIUM CHLORIDE 0.9% 500 ML 500 ML IV ONE (18:09)
[2021-06-13] MEDS ORDERED: SODIUM CHLORIDE 0.9% 1,000 ML with THIAMINE 100 MG, FOLIC ACID 1 MG IV ONE ×3 (18:09)
--- NOTE | 2021-06-13 18:34 | ED ---
General Adult HPI - General Chief complaint: Chest Pain Stated complaint: chest pain, ETOH Time Seen by Provider: 06/13/21 17:25 Source: patient, EMS, RN notes reviewed, old records reviewed Mode of arrival: EMS Limitations: altered mental status - History of Present Illness Initial comments: This a 60-year-old male who presents emergency department via EMS. They were called because the patient was found down outside and extremely intoxicated. Patient himself complains of sternal pain secondary to a fall that he had a month ago. Patient states any touching of the sternum hurts him. Patient states he was evaluated previously. It's difficult to get any further history from the patient because he is obnoxious and violent with staff. Nobody is calm with the patient to give any further history at this time as all the history that we have. - Related Data Home Medications Medication Instructions Recorded Confirmed No Known Home Medications 06/13/21 06/13/21 Allergies Allergy/AdvReac Type Severity Reaction Status Date / Time No Known Allergies Allergy Verified 06/13/21 19:32 Review of Systems ROS Statement: Those systems with pertinent positive or pertinent negative responses have been documented in the HPI. ROS Other: All systems not noted in ROS Statement are negative. Past Medical History Additional Past Medical History / Comment(s): headaches History of Any Multi-Drug Resistant Organisms: None Reported Past Surgical History: Hernia Repair Additional Past Surgical History / Comment(s): Hernia Past Anesthesia/Blood Transfusion Reactions: No Reported Reaction Past Psychological History: No Psychological Hx Reported Smoking Status: Current every day smoker Past Alcohol Use History: Abuse, Daily, Heavy Past Drug Use History: None Reported - Past Family History Mother History Unknown: Yes Family Medical History: Unable to Obtain Additional Family Medical History / Comment(s): I don't know, she had alot of things wrong with her. Father Family Medical History: Cancer Additional Family Medical History / Comment(s): Father of lung cancer. General Exam - General Exam Comments Initial Comments: GENERAL: Patient is well-developed and well-nourished. Patient is nontoxic and well- hydrated and is in no acute distress. Patient appears highly intoxicated ENT: Neck is soft and supple. No significant lymphadenopathy is noted. Oropharynx is clear. Moist mucous membranes. Neck has full range of motion without eliciting any pain. EYES: The sclera were anicteric and conjunctiva were pink and moist. Extraocular movements were intact and pupils were equal round and reactive to light. Eyelids were unremarkable. PULMONARY: Unlabored respirations. Good breath sounds bilaterally. No audible rales rhonc hi or wheezing was noted. CARDIOVASCULAR: There is a regular rate and rhythm without any murmurs gallops or rubs. Palpating the sternum causes the patient some pain difficult to assess how much secondary to the fact that the patient for atraumatic and intoxicated. ABDOMEN: Soft and nontender with normal bowel sounds. SKIN: Skin is clear with no lesions or rashes and otherwise unremarkable. NEUROLOGIC: Patient is alert and oriented x3. Cranial nerves II through XII are grossly intact. Motor and sensory are also intact. Normal speech, volume and content. Symmetrical smile. MUSCULOSKELETAL: Normal extremities with adequate strength and full range of motion. No lower extremity swelling or edema. No calf tenderness. LYMPHATICS: No significant lymphadenopathy is noted PSYCHIATRIC: Unable to assess secondary to intoxication Limitations: altered mental status Course Vital Signs 06/13/21 18:05 Pulse Rate 76 Respiratory 16 Rate Blood Pressure 164/92 O2 Sat by Pulse 99 Oximetry Procedures - Restraint - Face to Face Restraint Occurrence 1 Patient's Immediate Situation: Endangers others' safety, Endangers staff safety Patient's Reaction to the Intervention: Uncooperative, Angry, Hostile, Belligerent, Aggressive, Combative Patient's Medical & Behavioral Condition: Awake, Alert Need to Continue or Terminate Restraint or Seclusion: Continue Face to Face Eval of Restraint Date: 06/13/21 Face to Face Eval of Restraint Time: 18:20 Medical Decision Making - Medical Decision Making EKG shows sinus rhythm at 83 bpm LA interval 135 QRS is under 19 QT interval 365 QTC is 44. Patient's EKG shows no ST segment elevation or depression. Patient's alcohol was 330. I spoke with some physicians they agreed to admit the patient admitted the patient I wrote admitting orders. She received normal saline emergency department 2 of Ativan and was started on a banana bag. - Lab Data Result diagrams: 06/13/21 Unknown 06/13/21 Unknown Lab Results 06/13/21 06/13/21 Range/Units Unknown Unknown WBC 3.5 L (3.8-10.6) k/uL RBC 3.98 L (4.30-5.90) m/uL Hgb 14.2 (13.0-17.5) gm/dL Hct 43.9 (39.0-53.0) % MCV 110.2 H (80.0-100.0) fL MCH 35.7 H (25.0-35.0) pg MCHC 32.4 (31.0-37.0) g/dL RDW 13.5 (11.5-15.5) % Plt Count 333 (150-450) k/uL MPV 6.8 Neutrophils % (Manual) 30 % Band Neuts % (Manual) 2 % Lymphocytes % (Manual) 54 % Monocytes % (Manual) 12 % Eosinophils % (Manual) 1 % Metamyelocytes % 1 % Neutrophils # (Manual) 1.10 L (1.3-7.7) k/uL Lymphocytes # (Manual) 1.89 (1.0-4.8) k/uL Monocytes # (Manual) 0.42 (0-1.0) k/uL Eosinophils # (Manual) 0.04 (0-0.7) k/uL Metamyelocytes # (Man) 0.04 H (0) k/uL Nucleated RBCs 0 (0-0) /100 WBC Manual Slide Review Performed Macrocytosis Marked A Sodium 145 (137-145) mmol/L Potassium 4.2 (3.5-5.1) mmol/L Chloride 109 H (98-107) mmol/L Carbon Dioxide 24 (22-30) mmol/L Anion Gap 12 mmol/L BUN 4 L (9-20) mg/dL Creatinine 0.73 (0.66-1.25) mg/dL Est GFR (CKD-EPI)AfAm >90 (>60 ml/min/1.73 sqM) Est GFR (CKD-EPI)NonAf >90 (>60 ml/min/1.73 sqM) Glucose 96 (74-99) mg/dL Calcium 9.0 (8.4-10.2) mg/dL Magnesium 1.8 (1.6-2.3) mg/dL Total Bilirubin 0.4 (0.2-1.3) mg/dL AST 28 (17-59) U/L ALT 8 (4-49) U/L Alkaline Phosphatase 93 (38-126) U/L Total Protein 7.0 (6.3-8.2) g/dL Albumin 4.0 (3.5-5.0) g/dL Serum Alcohol 330 H* mg/dL Disposition Clinical Impression: Alcohol intoxication Disposition: ADMITTED IP TO THIS HOSP Referrals: None,Stated [Primary Care Provider] - 1-2 days Time of Disposition: 20:28
[2021-06-13 18:45] LABS: HCT 43.9 % (39.0-53.0); HGB 14.2 gm/dL (13.0-17.5); MCH 35.7 pg (25.0-35.0); MCHC 32.4 g/dL (31.0-37.0); MCV 110.2 fL (80.0-100.0); Macrocytosis Marked; Mean Platelet Volume 6.8; Platelet Count 333 k/uL (150-450); RBC 3.98 m/uL (4.30-5.90); RDW 13.5 % (11.5-15.5); WBC 3.5 k/uL (3.8-10.6)
[2021-06-13 18:51] LABS: ALT 8 U/L (4-49); AST 28 U/L (17-59); African American GFR (CKD) >90 (>60 ml/min/1.73 sqM); Alkaline Phosphatase 93 U/L (38-126); Anion Gap 12 mmol/L; Blood Urea Nitrogen 4 mg/dL (9-20); Carbon Dioxide 24 mmol/L (22-30); Chloride 109 mmol/L (98-107); Glucose 96 mg/dL (74-99); Magnesium 1.8 mg/dL (1.6-2.3); Non-African American GFR(CKD) >90 (>60 ml/min/1.73 sqM); Potassium 4.2 mmol/L (3.5-5.1); Sodium 145 mmol/L (137-145); Total Bilirubin 0.4 mg/dL (0.2-1.3)
[2021-06-13 18:58] LABS: Band Neutrophils % 2 %; Eosinophils # (M) 0.04 k/uL (0-0.7); Lymphocytes # (M) 1.89 k/uL (1.0-4.8); Metamyelocytes # (M) 0.04 k/uL (0); Metamyelocytes % 1 %; Monocytes # (M) 0.42 k/uL (0-1.0); Neutrophils % (M) 30 %; Nucleated Red Blood Cells 0 /100 WBC (0-0); Total Cells Counted 100
[2021-06-13 19:25] LABS: Alcohol 330 mg/dL
[2021-06-13] MEDS ORDERED: LORazepam 2 MG/ML INJ IV STA ×2 (19:36→20:52)
[2021-06-13] MEDS ORDERED: ZIPRASIDONE 20 MG VIAL IM STA (20:21)
[2021-06-13] MEDS ORDERED: LORazepam 2 MG/ML INJ IV PRN ×3 (20:29)
[2021-06-13] MEDS ORDERED: THIAMINE 100 MG/ML 2 ML VIAL IM STA (20:29)
[2021-06-13] MEDS: THIAMINE 100 MG TAB PO SCH (21:00)
[2021-06-13 21:04] LABS: Appearance,Urine Clear (Clear); Bilirubin,Urine Negative (Negative); Blood,Urine Negative (Negative); Color,Urine Light Yellow; Glucose,Urine (UA) Negative (Negative); Ketones,Urine Negative (Negative); Leukocyte Esterase,Urine Negative (Negative); Nitrite,Urine Negative (Negative); Protein,Urine Negative (Negative); Specific Gravity,Urine 1.003 (1.001-1.035); Urobilinogen,Urine <2.0 mg/dL (<2.0)
[2021-06-13 21:13] LABS: Amphetamine Screen,Urine Not Detected (NotDetected); Barbiturate Screen,Urine Not Detected (NotDetected); Benzodiazepines Screen,Urine Not Detected (NotDetected); Cocaine Screen,Urine Not Detected (NotDetected); Methadone Screen, Urine Not Detected (NotDetected); Opiate Screen,Urine Not Detected (NotDetected); Oxycodone Screen, Urine Not Detected (NotDetected); Phencyclidine Screen,Urine Not Detected (NotDetected); Tricyclic Antidepressant,Urine Not Detected (NotDetected); Urn Cannabinoid Scrn Not Detected (NotDetected)
--- NOTE | 2021-06-13 21:27 | XR ---
EXAMINATION TYPE: XR chest 1V portable DATE OF EXAM: 06/13/2021 9:00 PM COMPARISON:Multiple radiographs, with the most recent on 05/01/2021 TECHNIQUE: Frontal view of the chest. CLINICAL INDICATION:Male, 60 years old with history of Short of breath; FINDINGS: Lungs/Pleura: There is no evidence of pleural effusion, focal consolidation, or pneumothorax. Pulmonary vascularity: Unremarkable. Heart/mediastinum: Cardiomediastinal silhouette is unremarkable. Musculoskeletal: No acute osseous pathology. IMPRESSION: No acute cardiopulmonary disease/process.
--- NOTE | 2021-06-14 00:15 | P.HPIM ---
History of Present Illness H&P Date: 06/13/21 Chief Complaint: alcohol intoxication 60 year old male with alcohol abuse no further history available at this time patient was found down outside by EMS and was brought to the hospital for evaluation . patient confused and delirious was found to be intoxicated. cant provide any meaningful history . blood work showed macrocytosis with no anemia , alcohol level 330 , urine drug screen negative , covid negative patient is currently in restraints Review of Systems ROS unobtainable: due to mental status Past Medical History Past Medical History: Unable to Obtain Additional Past Medical History / Comment(s): headaches History of Any Multi-Drug Resistant Organisms: None Reported Past Surgical History: Hernia Repair Additional Past Surgical History / Comment(s): Hernia Past Anesthesia/Blood Transfusion Reactions: No Reported Reaction Past Psychological History: No Psychological Hx Reported Smoking Status: Current every day smoker Past Alcohol Use History: Abuse, Daily, Heavy Past Drug Use History: None Reported - Past Family History Mother History Unknown: Yes Family Medical History: Unable to Obtain Additional Family Medical History / Comment(s): I don't know, she had alot of things wrong with her. Father Family Medical History: Cancer Additional Family Medical History / Comment(s): Father of lung cancer. Medications and Allergies Home Medications Medication Instructions Recorded Confirmed Type No Known Home Medications 06/13/21 06/13/21 History Allergies Allergy/AdvReac Type Severity Reaction Status Date / Time No Known Allergies Allergy Verified 06/13/21 19:32 Physical Exam Vitals: Vital Signs Temp Pulse Resp BP Pulse Ox 06/13/21 22:00 97.8 F 90 18 168/99 95 06/13/21 21:00 97.8 F 94 20 141/84 96 06/13/21 18:05 76 16 164/92 99 Intake and Output 06/13/21 06/13/21 06/14/21 14:59 22:59 06:59 Other: Weight 110 kg Constitutional: patient was screaming, but calmed down quickly , delirious Eyes: Anicteric sclerae, moist conjunctiva, Pupils equal round reactive to light ENMT: NC/AT Oropharynx clear, no erythema, or exudates, upper dentures in place Neck: Supple, no masses, or JVD No carotid bruits No thyromegaly Lungs: Clear to auscultation Clear to percussion Normal respiratory effort, no accessory muscle use Cardiovascular: Heart regular in rate and rhythm, No murmurs, gallops, or rubs No peripheral edema Abdominal: Soft Nontender, no guarding, rebound or rigidity Abdomen moving with respiration Normoactive bowel sounds No hepatomegaly, No splenomegaly No palpable mass No abdominal wall hernia noted Skin: Normal temperature, tone, texture, turgor No induration No subcutaneous nodules No rash, lesions No ulcers Extremities: No digital cyanosis No clubbing Pedal pulses intact and symmetrical Radial pulses intact and symmetrical No calf tenderness Psychiatric: alert, delirious Neuro patient in physical restraints 4 point, trying to move all extremities , could not perform proper neuro exam due to patient mental status Lymphatics: no palpable cervical or supraclavicular lymph nodes Results CBC & Chem 7: 06/13/21 Unknown 06/13/21 Unknown Labs: Abnormal Lab Results - Last 24 Hours (Table) 06/13/21 06/13/21 Range/Units Unknown Unknown WBC 3.5 L (3.8-10.6) k/uL RBC 3.98 L (4.30-5.90) m/uL MCV 110.2 H (80.0-100.0) fL MCH 35.7 H (25.0-35.0) pg Neutrophils # (Manual) 1.10 L (1.3-7.7) k/uL Metamyelocytes # (Man) 0.04 H (0) k/uL Macrocytosis Marked A Chloride 109 H (98-107) mmol/L BUN 4 L (9-20) mg/dL Serum Alcohol 330 H* mg/dL Assessment and Plan Assessment: acute severe alcohol intoxication with delirium acute toxic metabolic encephalopathy 2/2 alcohol abuse alcohol abuse fall precautions alcohol withdrawal precautions benzo per CIWA scale thiamine daily IVF hydration with normal saline macrocytosis with out anemia , possibly secondary to alcohol abuse full code heparin sc tid anticipated length of stay > 2 midnights
[2021-06-14 01:57] VITALS: RESP 16; TEMP 97.6
[2021-06-14 04:06] VITALS: BP 138/82; PULSE 74
[2021-06-14] MEDS: THIAMINE 100 MG TAB PO SCH (07:40)
== END 2021-06-14 08:16 | disposition left against medical advice (07) | DRG 894 ==
LOC: EC 17:24 → 4SSUR 20:29
PROVIDERS: ADMIT Internal Medicine; ATTEND Internal Medicine
PROC: HZ2ZZZZ Detoxification Services for Substance Abuse Treatment (ICD-10-PCS; principal; 2021-06-13)
DX: F10.121 Alcohol abuse with intoxication delirium (principal); G31.2 Degeneration of nervous system due to alcohol; F17.210 Nicotine dependence, cigarettes, uncomplicated; Z20.822 Contact with and (suspected) exposure to COVID-19; Y90.8 Blood alcohol level of 240 mg/100 ml or more; D75.89 Other specified diseases of blood and blood-forming organs; Z87.19 Personal history of other diseases of the digestive system; Z78.1 Physical restraint status; Z80.1 Family history of malignant neoplasm of trachea, bronchus and lung
CPT/HCPCS: 36415; 71045; 80053; 80306; 80320; 81003; 83735; 85025; 87635; 93005